=== PATIENT | female | born 1985 | race Caucasian/White ===

== ENCOUNTER 2017-12-21 12:38 | Emergency (ER) | payer BC ==
[2017-12-21 12:56] VITALS: BP 113/62
--- NOTE | 2017-12-21 13:59 | UC ---
Back Pain HPI - HPI Summary HPI Summary: 3 days ago had some mild discomfort with urination so started hydrating and drinking cranberry. Today she developed chills, low back pain and diffuse achiness. Overall feels unwell and has headache. Is going to the [place] in 4 days and is concerned about feeling unwell while she is away. - History of Current Complaint Chief Complaint: UCGU Stated Complaint: BACK PAIN,FEVER Time Seen by Provider: 12/21/17 13:19 Hx Obtained From: Patient Hx Last Menstrual Period: 12/02/17 Onset/Duration: Gradual Onset, Lasting Days, Still Present Timing: Constant Severity Initially: Moderate Severity Currently: Moderate Pain Intensity: 4 Pain Scale Used: 0-10 Numeric Back Pain: Is Discrete @ - LOW BACK Character: Aching Aggravating Factor(s): Nothing Alleviating Factor(s): Nothing - Allergies/Home Medications Allergies/Adverse Reactions: Allergies Allergy/AdvReac Type Severity Reaction Status Date / Time No Known Allergies Allergy Verified 12/21/17 12:57 Home Medications: Home Medications Albuterol HFA INHALER* [Ventolin HFA Inhaler*] 1 puff INH Q4H PRN 12/21/17 [ History Confirmed 12/21/17] Montelukast Sodium TAB* [Singulair 10 MG TAB*] 10 mg PO DAILY WITH MEAL [History Confirmed 12/21/17] PMH/Surg Hx/FS Hx/Imm Hx Previously Healthy: Yes - Surgical History Surgical History: None Surgery Procedure, Year, and Place: [facility] - Family History Known Family History: Positive: Hypertension - Social History Alcohol Use: Occasionally Substance Use Type: None Smoking Status (MU): Never Smoked Tobacco Review of Systems Constitutional: Chills, Fatigue ENT: Negative Respiratory: Negative Cardiovascular: Negative Gastrointestinal: Negative Genitourinary: Dysuria Musculoskeletal: Arthralgia, Myalgia Neurological: Headache All Other Systems Reviewed And Are Negative: Yes Physical Exam Triage Information Reviewed: Yes Appearance: Well-Appearing, No Pain Distress, Well-Nourished Vital Signs: Initial Vital Signs Temp 97.8 F 12/21/17 12:51 Pulse 80 12/21/17 12:51 Resp 18 12/21/17 12:51 BP 113/62 12/21/17 12:51 Pulse Ox 100 12/21/17 12:51 Vital Signs Reviewed: Yes Eyes: Positive: Conjunctiva Clear ENT: Positive: Hearing grossly normal Neck: Positive: Supple, Nontender, No Lymphadenopathy Respiratory Exam: Normal Cardiovascular Exam: Normal Abdomen Description: Positive: Nontender, Soft. Negative: CVA Tenderness (R), CVA Tenderness (L), Distended, Guarding Musculoskeletal: Positive: No Edema Neurological: Positive: Alert Psychological: Positive: Age Appropriate Behavior Skin: Negative: rashes Diagnostics - Laboratory Diagnostic Studies Completed/Ordered: URINE DIP SP. GR. 1.010, TR KETONES. URINE HCG NEGATIVE Back Pain Course/Dx - Course Course Of Treatment: Urine dip unremarkable. Patient has overall malaise, muscle aches and slight headache. Symptoms are vague but seeing as patient is leaving the country [place] 2 weeks in a few days and is concerned about feeling unwell while away will check blood count and Lyme serology. - Differential Dx/Diagnosis Provider Diagnoses: MYALGIAS/BACK PAIN Discharge - Sign-Out/Discharge Documenting (check all that apply): Discharge/Admit/Transfer - Discharge Plan Condition: Stable Disposition: HOME Patient Education Materials: Musculoskeletal Pain (ED) Referrals: No Primary Care Phys,NOPCP [Primary Care Provider] - Additional Instructions: URINE TEST TODAY IS UNREMARKABLE. GIVEN YOUR UPCOMING TRAVEL AND SYMPTOMS OF SLIGHT HEADACHE, GENERAL ACHINESS, LOW BACK PAIN AND FATIGUE WILL CHECK BLOOD COUNT AND LYME SEROLOGY. IF YOU HAVE NOT HEARD FROM US BEFORE YOU LEAVE, CALL TO GET YOUR RESULTS. BE SURE TO STAY WELL-HYDRATED. IBUPROFEN NEEDED FOR DISCOMFORT. CALL THE NUMBER BELOW FOR ASSISTANCE IN ESTABLISHING WITH A PCP An additional resource available to assist in finding the appropriate physician for your health care needs is [facility] ([facility]). You may contact them by calling [phone]. - Billing Disposition and Condition Condition: STABLE Disposition: Home
[2017-12-21 20:58] LABS: ABS Basophils 0.1 10^3/ul (0-0.2); ABS Eosinophils 0 10^3/ul (0-0.6); ABS Lymphocytes 1.1 10^3/ul (1.0-4.8); ABS Monocytes 0.7 10^3/ul (0-0.8); ABS Neutrophils 7.3 10^3/ul (1.5-7.7); ABS Nucleated RBC 0 10^3/ul; Eosinophil % 0.4 % (0-6); Hematocrit 38 % (35-47); Hemoglobin 12.5 g/dl (12.0-16.0); Lymphocyte % 11.8 % (25-47); Mean Corpuscular HGB Conc 33 g/dl (31-36); Mean Corpuscular Hemoglobin 30 pg (27-31); Mean Corpuscular Volume 90 fL (80-97); Mean Platelet Volume 10.5 um3 (7.4-10.4); Nucleated Red Blood Cells % 0.1; Platelet Count 204 10^3/ul (150-450); Red Blood Count 4.17 10^6/ul (4.00-5.40); Red Cell Distribution Width 14 % (10.5-15); White Blood Count 9.1 10^3/ul (3.5-10.8)
== END 2017-12-21 13:58 | disposition home or self-care (01) ==
LOC: UCEAST 12:38
DX: M79.1 Myalgia (principal); M54.9 Dorsalgia, unspecified
CPT/HCPCS: 36415; 81003; 84702; 85025; 86618; 99211; G0463

== ENCOUNTER 2022-06-21 15:14 | Inpatient (IN) ==
[2022-06-21] MEDS ORDERED: Lactated Ringers 1000 ml BAG 1,000 ML IV ONE ×2 (16:36→23:50)
[2022-06-21] MEDS ORDERED: miSOPROStol 100 mcg TAB PO ONE (16:36)
[2022-06-21] MEDS ORDERED: Buffered Lidocaine 1% SYRIN 1 ml INTRADERM ONE (16:36)
[2022-06-21 17:40] LABS: Urine Benzodiazepine Screen None Detected (None Detect); Urine Cannabinoids Screen None Detected (None Detect); Urine Opiates Screen None Detected (None Detect)
[2022-06-21] MEDS: miSOPROStol 100 mcg TAB PO SCH (21:46)
[2022-06-21 22:20] LABS: ABS Eosinophils 0.1 10^3/ul (0-0.6); ABS Lymphocytes 1.7 10^3/ul (1.0-4.8); ABS Neutrophils 10.2 10^3/ul (1.5-7.7); Eosinophil % 0.4 %; Hematocrit 37 % (35-47); Hemoglobin 12.3 g/dL (12.0-16.0); Lymphocyte % 13.2 %; Mean Corpuscular HGB Conc 34 g/dL (31-36); Mean Corpuscular Hemoglobin 30 pg (27-31); Mean Corpuscular Volume 89 fL (80-97); Mean Platelet Volume 9.5 fL (7.4-10.4); Platelet Count 209 10^3/uL (150-450); Red Blood Count 4.09 10^6 /uL (3.70-4.87); Red Cell Distribution Width 14 % (10-15)
[2022-06-21] MEDS ORDERED: EPINEPHrine SULFITE FREE 1 MG/ML ONE (22:56)
[2022-06-21] MEDS ORDERED: Lidocaine 1% VIAL 10 MG/ML VIAL 30 ML ONE (22:56)
[2022-06-21] MEDS ORDERED: OBEPIDURAL (200 ML) 200 ML EPIDURAL ONE (22:56)
[2022-06-21] MEDS ORDERED: Bupivacaine 0.25% SDV PF 10 ML VIAL INJ ONE (23:26)
[2022-06-21] MEDS ORDERED: Lactated Ringers 1000 ml BAG 1,000 ML IV SCH (23:45)
[2022-06-21] MEDS ORDERED: OBEPIDURAL (200 ML) 200 ML EPIDURAL SCH (23:45)
[2022-06-21] MEDS: Lactated Ringers 1000 ml BAG 1,000 ML IV SCH (23:48)
[2022-06-21] MEDS ORDERED: Phenylephrine 40 mcg/mL 10mL (400mcg) SYRINGE IV PUSH PRN ×2 (23:50)
[2022-06-21] MEDS ORDERED: Sodium Citrate/Citric Acid LIQ 15 ML UDC PO PRN (23:50)
[2022-06-21] MEDS ORDERED: Lactated Ringers 1000 ml BAG 500 ML IV PRN ×2 (23:50)
[2022-06-22] MEDS: Lactated Ringers 1000 ml BAG 1,000 ML IV SCH ×2 (00:34→05:33)
[2022-06-22 01:00] LABS: Urine Appearance Clear; Urine Bilirubin Negative (Negative); Urine Blood Negative (Negative); Urine Color Yellow; Urine Glucose Negative (Negative); Urine Ketones Negative (Negative); Urine Nitrite Negative (Negative); Urine Protein Negative (Negative); Urine Specific Gravity 1.015 (1.005-1.030); Urine Urobilinogen 0.2 (Negative) (Negative)
[2022-06-22] MEDS ORDERED: Lactated Ringers 1000 ml BAG 1,000 ML IV SCH (09:00)
[2022-06-22] MEDS: miSOPROStol 100 mcg TAB PO SCH ×2 (10:48→10:49)
[2022-06-22] MEDS ORDERED: Lidocaine 1% MPF 5 ML VIAL ONE (13:17)
[2022-06-23 07:23] LABS: ABS Basophils 0.1 10^3/ul (0-0.2); ABS Eosinophils 0.1 10^3/ul (0-0.6); ABS Lymphocytes 2.1 10^3/ul (1.0-4.8); ABS Monocytes 1.1 10^3/ul (0-0.8); ABS Neutrophils 11.4 10^3/ul (1.5-7.7); Hematocrit 30 % (35-47); Lymphocyte % 14.5 %; Mean Corpuscular HGB Conc 34 g/dL (31-36); Mean Corpuscular Hemoglobin 30 pg (27-31); Mean Corpuscular Volume 89 fL (80-97); Platelet Count 182 10^3/uL (150-450); Red Blood Count 3.32 10^6 /uL (3.70-4.87); Red Cell Distribution Width 14 % (10-15); White Blood Count 14.8 10^3/uL (3.5-10.8)
[2022-06-23] MEDS: Witch Hazel PAD JAR TOPICAL PRN (21:03)
[2022-06-23] MEDS: Dibucaine 1% OINT 28.35 GM TUBE PR PRN (21:03)
[2022-06-24] MEDS: Dibucaine 1% OINT 28.35 GM TUBE PR PRN (08:51)
[2022-06-24] MEDS: Witch Hazel PAD JAR TOPICAL PRN (08:51)
[2022-06-24 09:20] VITALS: BP 111/63
== END 2022-06-24 13:37 | disposition home or self-care (01) | DRG 807 ==
LOC: MCHOBOUT 15:14 → MCHOB 16:14
PROVIDERS: ADMIT Registered Nurse; ATTEND Registered Nurse